=== PATIENT | female | born 1985 | race Caucasian/White ===

== ENCOUNTER 2017-11-26 14:35 | Emergency (ER) | payer OTHER ==
[~2017-11-26] VITALS: Ht 167.6 cm; Wt 79.8 kg
== END 2017-11-26 17:03 | disposition home or self-care (01) ==
LOC: ER 14:35 → EDBD 14:39 → ER 17:03
DX: J11.1 Influenza due to unidentified influenza virus with other respiratory manifestations (principal); J06.9 Acute upper respiratory infection, unspecified